=== PATIENT | male | born 1995 | race Caucasian/White ===

== ENCOUNTER 2018-05-03 12:05 | Inpatient (IN) | payer BC ==
[~2018-05-03] VITALS: Ht 175.3 cm; Wt 87.3 kg
[2018-05-03 12:30] VITALS: BP 182/92; PULSE 95; RESP 17; TEMP 99.1; O2SAT 97
[2018-05-03] MEDS ORDERED: SERO400T PO (13:40)
[2018-05-03] MEDS ORDERED: DEPA500T3 PO (13:40)
[2018-05-03] MEDS ORDERED: SERT-132 PO (13:40)
[2018-05-03] MEDS ORDERED: LURA40 PO (13:40)
[2018-05-03 13:48] LABS: AUTOMATED NEUTROPHIL # 6.8 TH/MM3 (1.8-7.7); BASOPHIL % 0.4 % (0.0-2.0); EOSINOPHIL # 0.1 TH/MM3 (0-0.4); EOSINOPHIL % 0.6 % (0.0-4.0); HEMATOCRIT 42.4 % (39.0-51.0); HEMOGLOBIN 14.7 GM/DL (13.0-17.0); LYMPH % 17.8 % (9.0-44.0); LYMPHOCYTE # 1.7 TH/MM3 (1.0-4.8); MEAN CELL VOLUME 87.9 FL (80.0-100.0); MEAN CORPUSCULAR HEMOGLOBIN 30.5 PG (27.0-34.0); MEAN CORPUSCULAR HGB CONC 34.7 % (32.0-36.0); MEAN PLATELET VOLUME 8.8 FL (7.0-11.0); MONO % 8.3 % (0.0-8.0); MONOCYTE # 0.8 TH/MM3 (0-0.9); NEUT % 72.9 % (16.0-70.0); PLATELET COUNT 174 TH/MM3 (150-450); RED BLOOD COUNT 4.83 MIL/MM3 (4.50-5.90); RED CELL DISTRIBUTION WIDTH 13.6 % (11.6-17.2); WHITE BLOOD COUNT 9.4 TH/MM3 (4.0-11.0)
[2018-05-03 14:06] LABS: ALBUMIN 4.1 GM/DL (3.4-5.0); AST (GOT) 56 U/L (15-37); BICARBONATE 23.7 MEQ/L (21.0-32.0); BLOOD UREA NITROGEN 10 MG/DL (7-18); CALCIUM 8.9 MG/DL (8.5-10.1); CHLORIDE 104 MEQ/L (98-107); CREATININE 0.92 MG/DL (0.60-1.30); GLOMERULAR FILTRATION RATE 102 ML/MIN (>89); GLUCOSE,RANDOM 93 MG/DL (74-106); SODIUM (NA) 139 MEQ/L (136-145)
[2018-05-03 14:08] LABS: ALT (GPT) 36 U/L (12-78)
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
[2018-05-03 14:16] LABS: ALKALINE PHOSPHATASE 65 U/L (45-117); TOTAL BILIRUBIN ADULT 0.4 MG/DL (0.2-1.0); TOTAL PROTEIN 7.3 GM/DL (6.4-8.2)
[2018-05-03 14:21] LABS: BILIRUBIN, URINE NEG (NEG); BLOOD, URINE NEG (NEG); GLUCOSE,URINE NEG (NEG); KETONE, URINE NEG (NEG); MUCUS URINE FEW /lpf (OCC); NITRITE,URINE NEG (NEG); URINE COLOR Straw (YELLW/STRAW); URINE LEUKOCYTE ESTERASE NEG (NEG)
[2018-05-03 18:03] VITALS: BP 169/96; PULSE 72; RESP 18; O2SAT 98
[2018-05-03 22:42] VITALS: BP 144/91; PULSE 80; RESP 18; O2SAT 99
[2018-05-04 01:59] VITALS: BP 162/96; PULSE 66; RESP 18; O2SAT 98
[2018-05-04 06:26] VITALS: BP 161/89; PULSE 93; RESP 18; O2SAT 98
[2018-05-04] MEDS ORDERED: LORazepam 1 MG TAB PO PRN (09:45)
[2018-05-04] MEDS ORDERED: ACETAMINOPHEN 325 MG TAB PO PRN (09:45)
[2018-05-04] MEDS ORDERED: MAGNESIUM HYDROXIDE SUSP 30 ML CUP PO PRN (09:45)
[2018-05-04] MEDS ORDERED: LORazepam 2 MG/ML VIAL IM PRN ×2 (09:45)
[2018-05-04] MEDS ORDERED: LORazepam 0.5 MG TAB PO PRN (09:45)
[2018-05-04] MEDS ORDERED: ALUMINUM/MAGNESIUM/SIMETH 30 ML CUP PO PRN (09:45)
[2018-05-04 11:15] VITALS: BP 163/99; PULSE 99; RESP 19; TEMP 98.6; O2SAT 97
[2018-05-04] MEDS: LORazepam 1 MG TAB PO SCH ×2 (17:15→22:00)
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
[2018-05-04] MEDS: SERTRALINE HCL 50 MG TAB PO SCH (17:48)
[2018-05-04] MEDS: DIVALPROEX SODIUM E.R. 500 MG TAB PO SCH (17:48)
[2018-05-04] MEDS: QUEtiapine FUMARATE 200 MG TAB PO SCH (17:48)
[2018-05-05] MEDS: LORazepam 1 MG TAB PO SCH ×3 (06:00→20:54)
[2018-05-05 06:38] VITALS: BP 157/88; PULSE 114; RESP 18; TEMP 97.7; O2SAT 97
[2018-05-05] MEDS: NICOTINE 21 MG/24 HR PATCH T-DERMAL SCH (09:00)
[2018-05-05] MEDS: SERTRALINE HCL 50 MG TAB PO SCH (09:14)
[2018-05-05] MEDS: LURASIDONE 40 MG TAB PO SCH (09:14)
[2018-05-05] MEDS: DIVALPROEX SODIUM E.R. 500 MG TAB PO SCH (09:15)
[2018-05-05] MEDS: QUEtiapine FUMARATE 200 MG TAB PO SCH (09:15)
[2018-05-05 09:41] LABS: BICARBONATE 21.5 MEQ/L (21.0-32.0); BLOOD UREA NITROGEN 14 MG/DL (7-18); CALCIUM 9.5 MG/DL (8.5-10.1); CHLORIDE 106 MEQ/L (98-107); CREATININE 1.24 MG/DL (0.60-1.30); GLOMERULAR FILTRATION RATE 72 ML/MIN (>89); GLUCOSE,RANDOM 137 MG/DL (74-106); SODIUM (NA) 140 MEQ/L (136-145)
[2018-05-05 09:42] LABS: CHOLESTEROL 281 MG/DL (120-200); TRIGLYCERIDES 140 MG/DL (42-150)
[2018-05-05 09:44] LABS: CHOLESTEROL/ HDL RATIO 6.93 RATIO; HDL CHOLESTEROL 40.5 MG/DL (40.0-60.0); LDL CHOLESTEROL 213 MG/DL (0-99)
--- NOTE | 2018-05-05 13:06 | HHI.PYPN ---
Subjective Remarks This is a request for second opinion. Admission note was reviewed and I agree with the history. Patient was seen and case was discussed with nursing. Patient continues with a blunted affect and thought blocking. He is able to hold conversation. Bizarre behavior yesterday where he got his ice cream and immediately threw it in the garbage. Insight is poor and he is likely responding to internal stimuli. Behaving well on the unit, no ETO's needed Mental Status Examination Appearance: Appropriate Consciousness: Alert Orientation: x4 Motor Activity: Normal gait Speech: Unremarkable Language: Adequate Fund of Knowledge: Adequate Attention and Concentration: Adequate Memory: Unremarkable Mood: Sad Affect: Flat Thought Process & Associations: Logical, Loose associations Thought Content: Bizarre thinking, Thought blocking, Preoccupations, Delusional Hallucination Type: None Delusion Type: Paranoid Suicidal Ideation: No Suicidal Plan: No Suicidal Intention: No Homicidal Ideation: No Homicidal Plan: No Homicidal Intention: No Insight: Poor Judgment: Poor Results Labs Test 05/05/18 08:48 Blood Urea Nitrogen 14 MG/DL Creatinine 1.24 MG/DL Random Glucose 137 MG/DL Calcium Level 9.5 MG/DL Sodium Level 140 MEQ/L Potassium Level 3.7 MEQ/L Chloride Level 106 MEQ/L Carbon Dioxide Level 21.5 MEQ/L Anion Gap 13 MEQ/L Estimat Glomerular Filtration Rate 72 ML/MIN Triglycerides Level 140 MG/DL Cholesterol Level 281 MG/DL LDL Cholesterol 213 MG/DL HDL Cholesterol 40.5 MG/DL Cholesterol/HDL Ratio 6.93 RATIO Vitals/IOs Vital Signs Date Time Temp Pulse Resp B/P (MAP) Pulse Ox O2 Delivery O2 Flow Rate FiO2 05/05/18 06:38 97.7 114 18 157/88 (111) 97 05/04/18 06:26 Room Air Assessment & Plan Problem List: (1) Unspecified psychosis ICD Codes: F29 - Unspecified psychosis not due to a substance or known physiological condition (2) Catatonia 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 Criteria include acute psychosis Justification for Cont. Inpt. Patient would decompensate in a less restrictive setting Gerard Cristina DO May 05, 2018 13:06
[2018-05-05 15:16] LABS: HEMOGLOBIN A1C 4.8 % (4.3-6.0)
[2018-05-05 17:26] VITALS: BP 173/108; PULSE 99
[2018-05-05 17:27] VITALS: BP 172/115; PULSE 100
[2018-05-05] MEDS ORDERED: cloNIDine HCL 0.2 MG TAB PO ONE (17:30)
[2018-05-05] MEDS: REMOVE OLD NICODERM (NICOTINE) PATCH T-DERMAL SCH (20:51)
[2018-05-06] MEDS: LORazepam 1 MG TAB PO SCH ×3 (06:00→22:00)
[2018-05-06 06:14] VITALS: BP 149/88; PULSE 100; RESP 17; TEMP 97.8; O2SAT 98
[2018-05-06 08:00] VITALS: BP 141/68
[2018-05-06] MEDS: QUEtiapine FUMARATE 200 MG TAB PO SCH (08:47)
[2018-05-06] MEDS: DIVALPROEX SODIUM E.R. 500 MG TAB PO SCH (08:47)
[2018-05-06] MEDS: SERTRALINE HCL 50 MG TAB PO SCH (08:47)
[2018-05-06] MEDS: LURASIDONE 40 MG TAB PO SCH (08:48)
[2018-05-06] MEDS: NICOTINE 21 MG/24 HR PATCH T-DERMAL SCH (08:51)
--- NOTE | 2018-05-06 11:29 | HHI.PYPN ---
Subjective Remarks Patient was seen and case discussed with nursing. Patient has a history of hypertension and is a pressure has been up. He says he has not been on any medications for a while for it. He denies any allergies. He remains internally preoccupied with thought blocking. He is quite disheveled. Denies any auditory or visual hallucinations. Seclusive to self Mental Status Examination Appearance: Appropriate Consciousness: Alert Orientation: x4 Motor Activity: Normal gait Speech: Unremarkable Language: Adequate Fund of Knowledge: Adequate Attention and Concentration: Adequate Memory: Unremarkable Mood: Sad Affect: Flat Thought Process & Associations: Logical, Loose associations Thought Content: Bizarre thinking, Thought blocking, Preoccupations, Delusional Hallucination Type: None Delusion Type: Paranoid Suicidal Ideation: No Suicidal Plan: No Suicidal Intention: No Homicidal Ideation: No Homicidal Plan: No Homicidal Intention: No Insight: Poor Judgment: Poor Results Vitals/IOs Vital Signs Date Time Temp Pulse Resp B/P (MAP) Pulse Ox O2 Delivery O2 Flow Rate FiO2 05/06/18 06:14 97.8 100 17 149/88 (108) 98 05/04/18 06:26 Room Air Assessment & Plan Problem List: (1) Unspecified psychosis ICD Codes: F29 - Unspecified psychosis not due to a substance or known physiological condition (2) Catatonia 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 Consult medicine for hypertension Justification for Cont. Inpt. Patient would decompensate in a less restrictive setting Gerard Cristina DO May 06, 2018 11:29
[2018-05-06] MEDS: LISINOPRIL 20 MG TAB PO SCH (11:30)
[2018-05-06 13:00] VITALS: BP 137/86; PULSE 102
[2018-05-06 17:20] VITALS: BP 135/88; PULSE 91; RESP 17; TEMP 98; O2SAT 98
[2018-05-06] MEDS: REMOVE OLD NICODERM (NICOTINE) PATCH T-DERMAL SCH (21:00)
[2018-05-07] MEDS: LORazepam 1 MG TAB PO SCH ×2 (06:00→13:47)
[2018-05-07 06:09] VITALS: BP 130/80; PULSE 104; RESP 16; TEMP 97.8
[2018-05-07] MEDS: QUEtiapine FUMARATE 200 MG TAB PO SCH (08:13)
[2018-05-07] MEDS: DIVALPROEX SODIUM E.R. 500 MG TAB PO SCH (08:13)
[2018-05-07] MEDS: LISINOPRIL 20 MG TAB PO SCH (08:14)
[2018-05-07] MEDS: NICOTINE 21 MG/24 HR PATCH T-DERMAL SCH (08:14)
[2018-05-07] MEDS: LURASIDONE 40 MG TAB PO SCH (08:14)
[2018-05-07] MEDS: SERTRALINE HCL 50 MG TAB PO SCH (08:14)
--- NOTE | 2018-05-07 13:32 | PD.CONS ---
HPI Service [facility] Hospitalists Consult Requested By Reason for Consult Hypertension Primary Care Physician No Primary Care Physician Diagnoses: (1) HTN (hypertension) History of Present Illness 23-year-old male with PMH significant for PTSD, bipolar disorder and hypertension who presents to [place] on 05/03 on a voluntary basis for psychiatric evaluation. Patent apparently thought that "everyone was out to get him" per ED report. H has been consulted due to HTN. Nurse does not report any acute concerns overnight or today. Patient is seen and examined in the activity room ambulating without assistance. He reports that he was on BP medication in the past and has stopped this on his own. He denies any recent dizziness, cough, lightheadedness, SOB, chest pain, N/V or abdominal pain. He does report several liquid BM's in the past several day. Today he has had 2 liquid BM's, he believes it is because his food does not have enough fat in it. Has been eating and drinking without issues. Right orbital ecchymosis noted, patient does not want to talk about it at the moment. He denies any visual changes, mild pain and tenderness around eye. No other complaints at this moment. Review of Systems Except as stated in HPI: all other systems reviewed are Neg Past Family Social History Allergies: Coded Allergies: No Known Allergies (Unverified , 05/03/18) Past Medical History Hypertension PTSD Schizophrenia Past Surgical History Tonsillectomy Reported Medications Reported Meds & Active Scripts Active Reported Seroquel (Quetiapine Fumarate) 400 Mg Tab 400 Mg PO DAILY Latuda (Lurasidone) 40 Mg Tab 40 Mg PO DAILY Sertraline (Sertraline HCl) 50 Mg Tab 50 Mg PO DAILY Depakote ER (Divalproex Sodium) 500 Mg Angélica 1,500 Mg PO DAILY Active Ordered Medications Current Medications Medications (Trade) Dose Ordered Sig/John Route Start Time Stop Time Status Last Admin (Ativan) 1 mg Q6H PRN PO 05/04/18 09:45 (Ativan Inj) 1 mg Q6H PRN IM 05/04/18 09:45 (Tylenol) 650 mg Q4H PRN PO 05/04/18 09:45 (Milk Of Magnesia Liq) 30 ml DAILY PRN PO 05/04/18 09:45 (Mag-Al Plus Susp Liq) 30 ml Q6H PRN PO 05/04/18 09:45 (Habitrol 21 Mg Patch.24 Hr) 1 patch DAILY T-DERMAL 05/05/18 09:00 Miscellaneous Information 1 HS T-DERMAL 05/05/18 21:00 (Prinivil) 20 mg DAILY PO 05/06/18 11:30 05/07/18 08:14 (Depakote Er) 750 mg BID PO 05/07/18 21:00 (Latuda) 60 mg DAILY PO 05/08/18 09:00 (SEROquel) 300 mg DAILY PO 05/08/18 09:00 (Zoloft) 100 mg DAILY PO 05/08/18 09:00 (Cogentin) 1 mg Q12HR PO 05/07/18 21:00 Family History Father: hypertension Social History Tobacco: denies Alcohol: denies Illicit drug use: Cannabis (reports this is an Rx used for PTSD) Physical Exam Vital Signs Vital Signs Date Time Temp Pulse Resp B/P (MAP) Pulse Ox O2 Delivery O2 Flow Rate FiO2 05/07/18 06:09 97.8 104 16 130/80 (97) 05/06/18 17:20 98.0 91 17 135/88 (104) 98 Physical Exam GENERAL: This is a well-nourished, well-developed patient, in no apparent distress. SKIN: No rashes or lesions. Cool and dry. HEAD: Atraumatic. Normocephalic. EYES: Pupils equal round and reactive. Extraocular motions intact. No scleral icterus. No injection or drainage. Right orbital ecchymosis. ENT: Nose without bleeding, purulent drainage. Throat without erythema. Uvula midline. Airway patent. NECK: Trachea midline. No JVD. Supple, nontender. CARDIOVASCULAR: Regular rate and rhythm without murmurs, gallops, or rubs. RESPIRATORY: Clear to auscultation. Breath sounds equal bilaterally. No wheezes , rales, or rhonchi. GASTROINTESTINAL: Abdomen soft, non-tender, nondistended. No guarding. + bowel sounds in all quadrants. MUSCULOSKELETAL: Extremities without clubbing, cyanosis, or edema. No joint tenderness, effusion, or edema noted. No calf tenderness. NEUROLOGICAL: Awake and alert oriented x3. Cranial nerves grossly intact. Motor and sensory grossly within normal limits. Five out of 5 muscle strength in all muscle groups. Normal speech. Result Diagram: 05/03/18 1320 05/05/18 0848 Assessment and Plan Assessment and Plan 23-year-old male with PMH significant for PTSD, bipolar disorder and hypertension who presents to [place] on 05/03 on a voluntary basis for psychiatric evaluation. Patent apparently thought that "everyone was out to get him" per ED report. [facility] has been consulted due to HTN. Psychosis - Treatment plan per psych, appreciate treatment Hypertension- BP on admission 182/92 - Started on Lisinopril 20mg daily by psych with good response - Discussed with patient the long-term and short term side effects of uncontrolled HTN - Continue current dose, monitor BP Loose stools - Check for C.Diff, start Lactinex BID, if C.Diff negative can add PRN Imodium DVT prophylaxis-ambulation Thank you for this consultation, will continue to follow. Discussed Condition With Patient and nurse. Problem Qualifiers (1) HTN (hypertension): Qualified Codes: I10 - Essential (primary) hypertension Gunnar Ward May 07, 2018 13:32
--- NOTE | 2018-05-07 14:37 | HHI.PYPN ---
Subjective Remarks Patient was seen today for psychiatric reevaluation. Documentation from weekend reviewed. on psychiatric evaluation today the patient presents calm, superficially cooperative, with a prominent flat affect, blocking thought, respiratory speech. He reports that he feels better, reports better mood, denies paranoia, delusions, denies suicidal and homicidal ideation, he denies visual and auditory hallucinations. Patient has been compliant with medications , no significant side effects. No catatonic symptoms present. Review of Systems Except as stated in HPI: all other systems reviewed are Neg Mental Status Examination Appearance: Appropriate Consciousness: Alert Orientation: x4 Motor Activity: Normal gait Speech: Unremarkable Language: Adequate Fund of Knowledge: Adequate Attention and Concentration: Adequate Memory: Unremarkable Mood: Sad Affect: Flat Thought Process & Associations: Logical, Loose associations Thought Content: Bizarre thinking, Thought blocking, Preoccupations, Delusional Hallucination Type: None Delusion Type: Paranoid Suicidal Ideation: No Suicidal Plan: No Suicidal Intention: No Homicidal Ideation: No Homicidal Plan: No Homicidal Intention: No Insight: Poor Judgment: Poor Results Vitals/IOs Vital Signs Date Time Temp Pulse Resp B/P (MAP) Pulse Ox O2 Delivery O2 Flow Rate FiO2 05/07/18 06:09 97.8 104 16 130/80 (97) 05/06/18 17:20 98 05/04/18 06:26 Room Air Assessment & Plan Problem List: (1) Unspecified psychosis ICD Codes: F29 - Unspecified psychosis not due to a substance or known physiological condition Assessment & Plan: On psychiatric evaluation today the patient presents internally preoccupied, with a prominent flat affect, respiratory speech, but able to answer to all my questions appropriately. Oriented 3. Denies suicidal and homicidal ideation, denies visual and auditory hallucinations. We will increase Latuda to 60 mg today, decrease Seroquel to 300 mg at bedtime, Depakote 750 mg daily/increased Zoloft 100 mg daily. 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 Inpt. Patient continues to be acutely psychotic, he is to be continue psychiatric hospitalization for stabilization. Caleb Hernandez MD May 07, 2018 14:37
[2018-05-07 15:57] VITALS: BP 144/71; PULSE 106; RESP 18; TEMP 98; O2SAT 99
[2018-05-07] MEDS: BENZTROPINE MESYLATE 1 MG TAB PO SCH (20:18)
[2018-05-07] MEDS: DIVALPROEX SODIUM E.R. 250 MG TAB PO SCH (20:20)
[2018-05-07] MEDS: REMOVE OLD NICODERM (NICOTINE) PATCH T-DERMAL SCH (20:34)
[2018-05-07] MEDS: LACTOBACILLUS ACIDOPHILUS TAB PO SCH (20:34)
[2018-05-08] VITALS (9 sets, daily range): BP systolic 128–160; BP diastolic 64–95; PULSE 77–90; RESP 18; TEMP 97.5–98.4; O2SAT 97–98
[2018-05-08] MEDS: SERTRALINE HCL 50 MG TAB PO SCH (08:34)
[2018-05-08] MEDS: DIVALPROEX SODIUM E.R. 250 MG TAB PO SCH ×2 (08:35→20:47)
[2018-05-08] MEDS: LISINOPRIL 20 MG TAB PO SCH (08:37)
[2018-05-08] MEDS: QUEtiapine FUMARATE 300 MG TAB PO SCH (08:37)
[2018-05-08] MEDS: BENZTROPINE MESYLATE 1 MG TAB PO SCH ×2 (08:37→20:47)
[2018-05-08] MEDS: NICOTINE 21 MG/24 HR PATCH T-DERMAL SCH (08:37)
[2018-05-08] MEDS: LACTOBACILLUS ACIDOPHILUS TAB PO SCH ×2 (08:54→20:47)
[2018-05-08] MEDS ORDERED: LURASIDONE 40 MG TAB PO SCH (09:00)
--- NOTE | 2018-05-08 14:23 | HHI.PR ---
Subjective Remarks Follow up on patient with PTSD, bipolar d/o, hypertensive. Patient seen and examined. Patient reports one episode of nonbloody nonbilious vomiting. He denies any associated fever, chills or abdominal pain. Patient reports he took his morning medications on an empty stomach and developed sudden onset of nausea with emesis x 1. He has had no further episodes. He was able to tolerate lunch without any recurrence. He states he feels fine. He denies any diarrhea today. He denies any dysuria. He denies any chest pain or SOB. Discussed with RN, no other acute issues noted. Objective Vitals Vital Signs Date Time Temp Pulse Resp B/P (MAP) Pulse Ox O2 Delivery O2 Flow Rate FiO2 05/08/18 05:54 97.5 85 18 135/82 (99) 98 05/08/18 05:48 97.5 85 18 135/82 (99) 98 05/08/18 00:13 77 18 141/85 (103) 97 05/07/18 15:57 98.0 106 18 144/71 (95) 99 Result Diagram: 05/05/18 0848 Objective Remarks GENERAL: This is a well-nourished, well-developed young male patient, in no apparent distress. Awake and alert. Appears comfortable. SKIN: No rashes or lesions. Warm and dry. HEAD: Atraumatic. Normocephalic. EYES: Pupils equal round and reactive. Extraocular motions intact. No scleral icterus. No injection or drainage. Right orbital ecchymosis. ENT: Nose without bleeding, purulent drainage. Throat without erythema. Uvula midline. Airway patent. MMM. NECK: Trachea midline. CARDIOVASCULAR: Regular rate and rhythm without murmurs, gallops, or rubs. RESPIRATORY: Clear to auscultation. Breath sounds equal bilaterally. No wheezes , rales, or rhonchi. GASTROINTESTINAL: Abdomen soft, non-tender, nondistended. No guarding. + bowel sounds in all quadrants. MUSCULOSKELETAL: Extremities without clubbing, cyanosis, or edema. No calf tenderness. NEUROLOGICAL: Awake and alert oriented x3. Cranial nerves grossly intact. Motor and sensory grossly within normal limits. Nonfocal. Normal speech. PSYCHIATRIC: Calm and cooperative. Procedures None A/P Problem List: (1) HTN (hypertension) ICD Code: I10 - Essential (primary) hypertension Assessment and Plan -year-old male with PMH significant for PTSD, bipolar disorder and hypertension who presents to [place] on 05/03 on a voluntary basis for psychiatric evaluation. Patent apparently thought that "everyone was out to get him" per ED report. [facility] has been consulted due to HTN. Psychosis -management per psychiatric team Hypertension- BP on admission 182/92 Started on Lisinopril 20mg daily by psych with good response. BP currently controlled. -continue on Lisinopril -continue to monitor BP and change treatment accordingly Loose stools, resolved Unable to send stool for C diff as no recurrence of diarrhea -monitor Emesis x 1 after taking morning medications on empty stomach -resolved, patient able to tolerate lunch with no recurrence. Patient denies any associated symptoms. -discussed w/RN, monitor and if recurrence will workup Cannabis use -discussed cessation DVT prophylaxis-ambulation Patient appears stable from hospitalist standpoint. [facility] will sign off for now. Please reconsult if needed. Problem Qualifiers (1) HTN (hypertension): Qualified Codes: I10 - Essential (primary) hypertension Christina Lawrence May 08, 2018 14:23
--- NOTE | 2018-05-08 16:31 | HHI.PYPN ---
Subjective Remarks The patient was seen today for psychiatric reevaluation, the case was widely discussed with nurse in charge and also with counselor Felice. On My psychiatric evaluation today the patient continues to have a very flat affect, he continues to be oddly realted, suspicious, internally preoccupied, even though he answers most of my questions appropriately. Patient is future oriented, he says that he wants to continue taking his medications, get better and leave the unit to live his life. He denies suicidal and homicidal ideation, he denies visual and auditory hallucinations. At Some point in the interview the patient became disorganized and mentioned that he feels his mind needs to be manipulated, but he did not elaborate about this. Review of Systems Psychiatric: COMPLAINS OF: Delusions Mental Status Examination Appearance: Appropriate Consciousness: Alert Orientation: x4 Motor Activity: Normal gait Speech: Unremarkable Language: Adequate Fund of Knowledge: Adequate Attention and Concentration: Adequate Memory: Unremarkable Mood: Sad Affect: Flat Thought Process & Associations: Logical, Loose associations Thought Content: Bizarre thinking, Thought blocking, Preoccupations, Delusional Hallucination Type: None Delusion Type: Paranoid Suicidal Ideation: No Suicidal Plan: No Suicidal Intention: No Homicidal Ideation: No Homicidal Plan: No Homicidal Intention: No Insight: Poor Judgment: Poor Results Vitals/IOs Vital Signs Date Time Temp Pulse Resp B/P (MAP) Pulse Ox O2 Delivery O2 Flow Rate FiO2 05/08/18 05:54 97.5 85 18 135/82 (99) 98 Assessment & Plan Problem List: (1) Unspecified psychosis ICD Codes: F29 - Unspecified psychosis not due to a substance or known physiological condition Assessment & Plan: Patient continues to be acutely psychotic, with very flat affect, speech delay, internal preoccupation and thought control. Will increase Latuda to 90 mg daily. 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 Inpt. Patient is acutely psychotic. Caleb Hernandez MD May 08, 2018 16:31
[2018-05-08] MEDS ORDERED: PILL SPLITTER OTHER PRN (16:45)
[2018-05-08] MEDS: REMOVE OLD NICODERM (NICOTINE) PATCH T-DERMAL SCH (20:47)
[2018-05-09 06:00] VITALS: BP 136/92; PULSE 80; RESP 18; TEMP 97.6; O2SAT 99
[2018-05-09 06:01] VITALS: BP 116/52; PULSE 86; RESP 18; TEMP 97.7; O2SAT 98
[2018-05-09] MEDS: BENZTROPINE MESYLATE 1 MG TAB PO SCH ×2 (08:49→20:38)
[2018-05-09] MEDS: NICOTINE 21 MG/24 HR PATCH T-DERMAL SCH (08:49)
[2018-05-09] MEDS: DIVALPROEX SODIUM E.R. 250 MG TAB PO SCH ×2 (08:50→20:38)
[2018-05-09] MEDS: LACTOBACILLUS ACIDOPHILUS TAB PO SCH ×2 (08:50→20:38)
[2018-05-09] MEDS: LISINOPRIL 20 MG TAB PO SCH (08:52)
[2018-05-09] MEDS: LURASIDONE 40 MG TAB PO SCH (08:52)
[2018-05-09] MEDS: QUEtiapine FUMARATE 300 MG TAB PO SCH (08:53)
[2018-05-09] MEDS: SERTRALINE HCL 50 MG TAB PO SCH (08:53)
--- NOTE | 2018-05-09 15:38 | HHI.PYPN ---
Subjective Remarks I have seen the patient today for psychiatric reevaluation. I have discussed the case with nurse in charge. On my psychiatric evaluation today the patient presents quite guarded, with prominent flat affect, thought blocking, respiratory speech, basically internally preoccupied, but reported that he feels much better. The patient endorsed report in her sensation of anxiety, he described the anxiety as "coming from inside my body". He denies suicidal and homicidal ideation, he denies visual and auditory hallucinations. No agitation , no aggressive behavior has been reported. The patient has been isolated, but get out of the bed to eat and has participated in activities. He has been compliant with medications, he is reported anxiety could be consistent with akathisia. Review of Systems Psychiatric: COMPLAINS OF: Anxiety, Delusions Mental Status Examination Appearance: Appropriate Consciousness: Alert Orientation: x4 Motor Activity: Normal gait Speech: Unremarkable Language: Adequate Fund of Knowledge: Adequate Attention and Concentration: Adequate Memory: Unremarkable Mood: Sad Affect: Flat Thought Process & Associations: Logical, Loose associations Thought Content: Bizarre thinking, Thought blocking, Preoccupations, Delusional Hallucination Type: None Delusion Type: Paranoid Suicidal Ideation: No Suicidal Plan: No Suicidal Intention: No Homicidal Ideation: No Homicidal Plan: No Homicidal Intention: No Insight: Poor Judgment: Poor Results Vitals/IOs Vital Signs Date Time Temp Pulse Resp B/P (MAP) Pulse Ox O2 Delivery O2 Flow Rate FiO2 05/09/18 06:01 97.7 86 18 116/52 (73) 98 Assessment & Plan Problem List: (1) Unspecified psychosis ICD Codes: F29 - Unspecified psychosis not due to a substance or known physiological condition Assessment & Plan: Patient continues to be psychotic, he has a prominent flat affect, blocking thought, respiratory speech. He reports inner the sensation of anxiety that could be consistent with akathisia. Will decrease Seroquel 100 mg at bedtime. We will add propanolol 10 mg daily for akathisia. Will try to avoid benzodiazepines given his past history of drug abuse. 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 Inpt. The patient continues to be acutely psychotic, with a prominent reality distortion, he needs to continue psychiatric hospitalization for stabilization. Caleb Hernandez MD May 09, 2018 15:38
[2018-05-09 16:45] VITALS: BP 142/81; PULSE 83; RESP 17; TEMP 98.2; O2SAT 98
[2018-05-09] MEDS: REMOVE OLD NICODERM (NICOTINE) PATCH T-DERMAL SCH (20:38)
[2018-05-09] MEDS: PROPRANOLOL HCL 10 MG TAB PO SCH (22:00)
[2018-05-10 00:01] VITALS: BP 140/90
[2018-05-10 06:01] VITALS: BP 140/83; PULSE 72; RESP 18; TEMP 97.8; O2SAT 99
[2018-05-10] MEDS: PROPRANOLOL HCL 10 MG TAB PO SCH ×3 (06:14→22:00)
[2018-05-10] MEDS: QUEtiapine FUMARATE 100 MG TAB PO SCH (08:23)
[2018-05-10] MEDS: DIVALPROEX SODIUM E.R. 250 MG TAB PO SCH ×2 (08:24→20:47)
[2018-05-10] MEDS: BENZTROPINE MESYLATE 1 MG TAB PO SCH ×2 (08:24→20:46)
[2018-05-10] MEDS: LISINOPRIL 20 MG TAB PO SCH (08:24)
[2018-05-10] MEDS: LURASIDONE 40 MG TAB PO SCH (08:25)
[2018-05-10] MEDS: LACTOBACILLUS ACIDOPHILUS TAB PO SCH ×2 (08:26→20:46)
[2018-05-10] MEDS: SERTRALINE HCL 50 MG TAB PO SCH (08:28)
[2018-05-10] MEDS: NICOTINE 21 MG/24 HR PATCH T-DERMAL SCH (09:00)
[2018-05-10 13:38] VITALS: BP 136/76; PULSE 66
--- NOTE | 2018-05-10 15:19 | HHI.PYPN ---
Subjective Remarks The patient was seen today for psychiatric reevaluation, he also was seen in [facility] and after [facility] in a family meeting with his mother. The patient presents today with a brighter affect, he did really well in [employer] [address] , he seems to be quite goal-directed, logical, organized, but continues to have a very flat affect, some level of delay speech and blocking thought. He denies suicidal enemas ideation, he denies visual and auditory hallucinations. He is compliant with medications, no side effects, no akathisia today. Review of Systems Except as stated in HPI: all other systems reviewed are Neg Mental Status Examination Appearance: Appropriate Consciousness: Alert Orientation: x4 Motor Activity: Normal gait Speech: Unremarkable Language: Adequate Fund of Knowledge: Adequate Attention and Concentration: Adequate Memory: Unremarkable Mood: Sad Affect: Flat Thought Process & Associations: Logical, Loose associations Thought Content: Bizarre thinking, Thought blocking, Preoccupations, Delusional Hallucination Type: None Delusion Type: Paranoid Suicidal Ideation: No Suicidal Plan: No Suicidal Intention: No Homicidal Ideation: No Homicidal Plan: No Homicidal Intention: No Insight: Poor Judgment: Poor Results Vitals/IOs Vital Signs Date Time Temp Pulse Resp B/P (MAP) Pulse Ox O2 Delivery O2 Flow Rate FiO2 05/10/18 13:38 66 136/76 (96) 05/10/18 06:01 97.8 18 99 Assessment & Plan Problem List: (1) Unspecified psychosis ICD Codes: F29 - Unspecified psychosis not due to a substance or known physiological condition Assessment & Plan: Continue current psychotropic regimen. 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 Inpt. Patient continues to be psychotic, he has a elevated risk to decompensate at a lower level od care Caleb Hernandez MD May 10, 2018 15:19
[2018-05-10 18:05] VITALS: BP 148/74; PULSE 72; RESP 16; TEMP 98.3; O2SAT 97
[2018-05-10] MEDS: REMOVE OLD NICODERM (NICOTINE) PATCH T-DERMAL SCH (20:47)
[2018-05-10 23:45] VITALS: BP 157/88; PULSE 59; RESP 18; TEMP 97.6; O2SAT 98
[2018-05-11] MEDS: PROPRANOLOL HCL 10 MG TAB PO SCH ×3 (05:41→21:12)
[2018-05-11 05:53] VITALS: BP 161/86; PULSE 64; RESP 18; TEMP 98.1; O2SAT 98
[2018-05-11] MEDS: SERTRALINE HCL 50 MG TAB PO SCH (08:57)
[2018-05-11] MEDS: QUEtiapine FUMARATE 100 MG TAB PO SCH (08:57)
[2018-05-11] MEDS: BENZTROPINE MESYLATE 1 MG TAB PO SCH ×2 (08:58→21:09)
[2018-05-11] MEDS: DIVALPROEX SODIUM E.R. 250 MG TAB PO SCH ×2 (08:58→21:10)
[2018-05-11] MEDS: LISINOPRIL 20 MG TAB PO SCH (08:58)
[2018-05-11] MEDS: LURASIDONE 40 MG TAB PO SCH (09:00)
[2018-05-11] MEDS: NICOTINE 21 MG/24 HR PATCH T-DERMAL SCH (09:00)
[2018-05-11] MEDS: LACTOBACILLUS ACIDOPHILUS TAB PO SCH ×2 (09:06→21:50)
--- NOTE | 2018-05-11 15:14 | HHI.PYPN ---
Subjective Remarks On psychiatric evaluation today the patient remains calm, cooperative, but continues to be suspicious, internally preoccupied, with flat affect. The patient reports that he has been doing okay with the exception that at times "I feel like a butterfly is eating my back", and I asked the patient to elaborate about this idea, the patient became quite guarded. The patient denies suicidal and homicidal ideation, he denies visual and auditory hallucinations. No agitation, no aggressive behavior reported in the unit. The patient has been compliant with his medications, no significant side effects reported. He denies symptoms of depression and anxiety. Review of Systems Except as stated in HPI: all other systems reviewed are Neg Mental Status Examination Appearance: Appropriate Consciousness: Alert Orientation: x4 Motor Activity: Normal gait Speech: Unremarkable Language: Adequate Fund of Knowledge: Adequate Attention and Concentration: Adequate Memory: Unremarkable Mood: Sad Affect: Flat Thought Process & Associations: Logical, Loose associations Thought Content: Bizarre thinking, Thought blocking, Preoccupations, Delusional Hallucination Type: None Delusion Type: Paranoid Suicidal Ideation: No Suicidal Plan: No Suicidal Intention: No Homicidal Ideation: No Homicidal Plan: No Homicidal Intention: No Insight: Poor Judgment: Poor Results Vitals/IOs Vital Signs Date Time Temp Pulse Resp B/P (MAP) Pulse Ox O2 Delivery O2 Flow Rate FiO2 05/11/18 05:53 98.1 64 18 161/86 (111) 98 Assessment & Plan Problem List: (1) Unspecified psychosis ICD Codes: F29 - Unspecified psychosis not due to a substance or known physiological condition Assessment & Plan: We will increase Latuda to 120 mg daily for psychosis. Brief supportive psychotherapy provided. 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 Inpt. Patient has an elevated risk to decompensate at a lower level of care. Caleb Hernandez MD May 11, 2018 15:14
[2018-05-11 18:41] VITALS: BP 132/61; PULSE 78; RESP 18; TEMP 97.7; O2SAT 96
[2018-05-11] MEDS: REMOVE OLD NICODERM (NICOTINE) PATCH T-DERMAL SCH (21:00)
[2018-05-12] MEDS: PROPRANOLOL HCL 10 MG TAB PO SCH ×3 (06:29→22:08)
[2018-05-12 06:47] VITALS: BP 133/82; PULSE 59; RESP 17; TEMP 97.7; O2SAT 98
[2018-05-12] MEDS: NICOTINE 21 MG/24 HR PATCH T-DERMAL SCH (09:00)
[2018-05-12] MEDS: LURASIDONE 40 MG TAB PO SCH (09:41)
[2018-05-12] MEDS: SERTRALINE HCL 50 MG TAB PO SCH (09:41)
[2018-05-12] MEDS: DIVALPROEX SODIUM E.R. 250 MG TAB PO SCH ×2 (09:42→21:13)
[2018-05-12] MEDS: BENZTROPINE MESYLATE 1 MG TAB PO SCH ×2 (09:42→21:13)
[2018-05-12] MEDS: LISINOPRIL 20 MG TAB PO SCH (09:43)
[2018-05-12] MEDS: LACTOBACILLUS ACIDOPHILUS TAB PO SCH ×2 (10:51→21:13)
--- NOTE | 2018-05-12 17:21 | HHI.PYPN ---
Subjective Remarks Reviewed electronic medical record and discussed case with staff. Follow-up was conducted in the patient's room. His speech is clear and logical. He reports that he is to be discharged to rehab on Monday and that he "feels very optimistic" about the move. He states that he has been sleeping well and has had a good appetite. He denies any side effects from the medications although he does state that he "vomited today". However, his nurse reports that it was sputum. Nurse also reported that his mother called and was questioning his medications. His mother attempted to visit with him while I was on the unit and [place] refused to see her. Mental Status Examination Appearance: Appropriate Consciousness: Alert Orientation: x4 Motor Activity: Normal gait Speech: Unremarkable Language: Adequate Fund of Knowledge: Adequate Attention and Concentration: Adequate Memory: Unremarkable Mood: Sad Affect: Flat Thought Process & Associations: Logical, Loose associations Thought Content: Bizarre thinking, Thought blocking, Preoccupations, Delusional Hallucination Type: None Delusion Type: Paranoid Suicidal Ideation: No Suicidal Plan: No Suicidal Intention: No Homicidal Ideation: No Homicidal Plan: No Homicidal Intention: No Insight: Poor Judgment: Poor Results Vitals/IOs Vital Signs Date Time Temp Pulse Resp B/P (MAP) Pulse Ox O2 Delivery O2 Flow Rate FiO2 05/12/18 06:47 97.7 59 17 133/82 (99) 98 Assessment & Plan Problem List: (1) Unspecified psychosis ICD Codes: F29 - Unspecified psychosis not due to a substance or known physiological condition (2) Catatonia 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 Days Justification for Cont. Inpt. Moving this patient to a less restrictive environment would likely result in decompensation. Lizzy Galeano May 12, 2018 17:21
[2018-05-12 18:40] VITALS: BP 141/83; PULSE 70; RESP 17; TEMP 97.8; O2SAT 98
[2018-05-12] MEDS: REMOVE OLD NICODERM (NICOTINE) PATCH T-DERMAL SCH (21:00)
[2018-05-13 06:29] VITALS: BP 142/91; PULSE 56; RESP 18; TEMP 97.9; O2SAT 98
[2018-05-13] MEDS: PROPRANOLOL HCL 10 MG TAB PO SCH ×3 (06:41→21:55)
[2018-05-13] MEDS: LACTOBACILLUS ACIDOPHILUS TAB PO SCH ×2 (08:27→21:04)
[2018-05-13] MEDS: SERTRALINE HCL 50 MG TAB PO SCH (08:29)
[2018-05-13] MEDS: DIVALPROEX SODIUM E.R. 250 MG TAB PO SCH ×2 (08:30→21:04)
[2018-05-13] MEDS: LISINOPRIL 20 MG TAB PO SCH (08:30)
[2018-05-13] MEDS: LURASIDONE 40 MG TAB PO SCH (08:30)
[2018-05-13] MEDS: BENZTROPINE MESYLATE 1 MG TAB PO SCH ×2 (08:30→21:04)
[2018-05-13] MEDS: NICOTINE 21 MG/24 HR PATCH T-DERMAL SCH (08:31)
--- NOTE | 2018-05-13 08:47 | HHI.PYPN ---
Subjective Remarks Reviewed electronic medical record discussed case with staff. Follow-up was conducted in the patient's room. Patient was found lying on his bed awake. He reports that he slept well as had a good appetite and denies any side effects from the medication. He states that he is looking forward to moving to the rehab. He does report feeling nauseous. Mental Status Examination Appearance: Appropriate Consciousness: Alert Orientation: x4 Motor Activity: Normal gait Speech: Unremarkable Language: Adequate Fund of Knowledge: Adequate Attention and Concentration: Adequate Memory: Unremarkable Mood: Sad Affect: Flat Thought Process & Associations: Logical, Loose associations Thought Content: Bizarre thinking, Thought blocking, Preoccupations, Delusional Hallucination Type: None Delusion Type: Paranoid Suicidal Ideation: No Suicidal Plan: No Suicidal Intention: No Homicidal Ideation: No Homicidal Plan: No Homicidal Intention: No Insight: Poor Judgment: Poor Results Vitals/IOs Vital Signs Date Time Temp Pulse Resp B/P (MAP) Pulse Ox O2 Delivery O2 Flow Rate FiO2 05/13/18 06:29 97.9 56 18 142/91 (108) 98 Assessment & Plan Problem List: (1) Unspecified psychosis ICD Codes: F29 - Unspecified psychosis not due to a substance or known physiological condition (2) Catatonia 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 He will be reevaluated by his attending psychiatrist tomorrow. Days Justification for Cont. Inpt. Moving this patient to a less restrictive environment likely result in decompensation. Lizzy Galeano May 13, 2018 08:47
[2018-05-13 17:10] VITALS: BP 125/78; PULSE 62; RESP 18; TEMP 98.2; O2SAT 98
[2018-05-13] MEDS: REMOVE OLD NICODERM (NICOTINE) PATCH T-DERMAL SCH (21:00)
[2018-05-14] MEDS: PROPRANOLOL HCL 10 MG TAB PO SCH ×3 (06:19→21:00)
[2018-05-14 06:33] VITALS: BP 146/81; PULSE 80; RESP 17; TEMP 98.6; O2SAT 97
[2018-05-14] MEDS: LURASIDONE 40 MG TAB PO SCH (08:36)
[2018-05-14] MEDS: SERTRALINE HCL 50 MG TAB PO SCH (08:36)
[2018-05-14] MEDS: BENZTROPINE MESYLATE 1 MG TAB PO SCH ×2 (08:36→20:59)
[2018-05-14] MEDS: DIVALPROEX SODIUM E.R. 250 MG TAB PO SCH ×2 (08:36→21:02)
[2018-05-14] MEDS: NICOTINE 21 MG/24 HR PATCH T-DERMAL SCH (08:36)
[2018-05-14] MEDS: LACTOBACILLUS ACIDOPHILUS TAB PO SCH ×2 (08:36→21:03)
[2018-05-14] MEDS: LISINOPRIL 20 MG TAB PO SCH (08:36)
--- NOTE | 2018-05-14 14:58 | HHI.PYPN ---
Subjective Remarks The patient was seen today for psychiatric reevaluation. Case discussed nursing staff. The patient is calm, cooperative, continues to show a flat affect, seems to be internally preoccupied, but the patient is logical, coherent and relevant. The patient denies suicidal enemas ideation, denies visual and auditory hallucinations. He has been behaving appropriately in the unit, no agitation, no aggressive behavior reported. Compliant medications, no significant side effects. Is fully oriented 3, at times seems to be confused, but no attention deficit, no fluctuation of consciousness present. Review of Systems Except as stated in HPI: all other systems reviewed are Neg Mental Status Examination Appearance: Appropriate Consciousness: Alert Orientation: x4 Motor Activity: Normal gait Speech: Unremarkable Language: Adequate Fund of Knowledge: Adequate Attention and Concentration: Adequate Memory: Unremarkable Mood: Sad Affect: Flat Thought Process & Associations: Logical, Loose associations Thought Content: Bizarre thinking, Thought blocking, Preoccupations, Delusional Hallucination Type: None Delusion Type: Paranoid Suicidal Ideation: No Suicidal Plan: No Suicidal Intention: No Homicidal Ideation: No Homicidal Plan: No Homicidal Intention: No Insight: Poor Judgment: Poor Results Vitals/IOs Vital Signs Date Time Temp Pulse Resp B/P (MAP) Pulse Ox O2 Delivery O2 Flow Rate FiO2 05/14/18 06:33 98.6 80 17 146/81 (102) 97 Assessment & Plan Problem List: (1) Unspecified psychosis ICD Codes: F29 - Unspecified psychosis not due to a substance or known physiological condition Assessment & Plan: Continue current psychotropic regimen. Brief supportive psychotherapy provided. 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 Inpt. Patient will be discharged tomorrow to an inpatient rehab. Caleb Hernandez MD May 14, 2018 14:58
[2018-05-14 18:01] VITALS: BP 126/65; PULSE 65; RESP 18; TEMP 98.1; O2SAT 99
[2018-05-14] MEDS: REMOVE OLD NICODERM (NICOTINE) PATCH T-DERMAL SCH (21:00)
[2018-05-15 05:21] VITALS: BP 157/103; PULSE 97; RESP 18; TEMP 97.3; O2SAT 97
[2018-05-15] MEDS: PROPRANOLOL HCL 10 MG TAB PO SCH (05:27)
[2018-05-15] MEDS: LACTOBACILLUS ACIDOPHILUS TAB PO SCH (08:18)
[2018-05-15] MEDS: BENZTROPINE MESYLATE 1 MG TAB PO SCH (08:18)
[2018-05-15] MEDS: DIVALPROEX SODIUM E.R. 250 MG TAB PO SCH (08:19)
[2018-05-15] MEDS: SERTRALINE HCL 50 MG TAB PO SCH (08:20)
[2018-05-15] MEDS: LISINOPRIL 20 MG TAB PO SCH (08:20)
[2018-05-15] MEDS: LURASIDONE 40 MG TAB PO SCH (08:20)
[2018-05-15] MEDS: NICOTINE 21 MG/24 HR PATCH T-DERMAL SCH (09:00)
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
[2018-05-15] MEDS ORDERED: ZOLO50TA PO (09:42)
[2018-05-15] MEDS ORDERED: DIVA250ER PO (09:42)
[2018-05-15] MEDS ORDERED: PROP10TA6 PO (09:45)
[2018-05-15] MEDS ORDERED: LURA40 PO (09:45)
== END 2018-05-15 12:15 | DRG 885 ==
LOC: NEPD 12:05 → NEDA 05-04 09:38 → H270 05-04 11:10
PROVIDERS: ADMIT Psychiatry & Neurology Psychiatry; ATTEND Psychiatry & Neurology Psychiatry
DX: F29 Unspecified psychosis not due to a substance or known physiological condition (principal); F06.1 Catatonic disorder due to known physiological condition; G25.71 Drug induced akathisia; F12.90 Cannabis use, unspecified, uncomplicated; F25.9 Schizoaffective disorder, unspecified; I10 Essential (primary) hypertension; F43.10 Post-traumatic stress disorder, unspecified; S00.11XA Contusion of right eyelid and periocular area, initial encounter; X58.XXXA Exposure to other specified factors, initial encounter; Z91.5 Personal history of self-harm
CPT/HCPCS: 80048; 80053; 80061; 80164; 80307; 81001; 83036; 84443; 85025